=== PATIENT | male | born 1960 | race Caucasian/White ===

== ENCOUNTER 2016-10-14 08:06 | Emergency (ER) | payer OTHER ==
[~2016-10-14] VITALS: Ht 180.3 cm; Wt 97.9 kg
[~2016-10-14 08:06] MED LIST: AMOXICILLIN500 MG PO; ASPIRIN325 MG PO; CATAPRES0.1 MG PO; CLONIDINE HCL0.1 MG PO; CRESTOR40 MG PO; HYDROCHLOROTH12.5 M3 PO; HYDROCHLOROTHIA25 MG PO; ISOSORBIDE MONO30 MG PO; LIPITOR80 MG PO; LISINOPRIL10 MG PO; TARKA 4/2401 TABLET PO; TARKA PO; VERAPAMIL HCL240 MG PO
[2016-10-14 09:16] LABS: INFLUENZA A VIRAL ANTIGEN NEGATIVE; INFLUENZA B VIRAL ANTIGEN NEGATIVE
[2016-10-14 09:47] LABS: EOSINOPHIL (%) 0.3 % (0-5); HEMATOCRIT 40.4 % (38.0-50.0); IMMATURE GRANULOCYTE (%) 0.1 % (0.0-0.7); INSTRUMENT ABS NEUTROPHIL CT 6.6 K/uL; LYMPHOCYTE COUNT 0.6 K/uL (1.0-2.8); MCH 30.4 PG (29.0-34.0); MCHC 34.2 G/DL (30.0-36.0); MEAN PLAT.VOLUME 8.7 uM^3 (9.0-12.4); MONOCYTE (%) 6.7 % (3-12); MONOCYTE COUNT 0.5 K/uL (0-0.8); NEUTROPHIL (%) 85.2 % (45-76); NEUTROPHIL COUNT 6.6 K/uL (1.8-6.4); PLATELET COUNT 179 K/uL (156-360); RBC DIS.WIDTH-CV 12.5 % (11.8-14.6); RBC DIS.WIDTH-SD 40.8 % (39-53); RED BLOOD COUNT 4.54 M/uL (4.00-5.50); WHITE BLOOD COUNT 7.7 K/uL (4.1-10.2)
[2016-10-14 09:48] LABS: ADD MIUA? YES; BILIRUBIN SMALL; BLOOD NEGATIVE; COLOR AMBER ((YELLOW)); GLUCOSE (STRIP) NEGATIVE; KETONES 5; LEUKOCYTES NEGATIVE; NITRITE NEGATIVE; PROTEIN (STRIP) 100; SPECIFIC GRAVITY 1.038 (1.000-1.030)
[2016-10-14 09:59] LABS: CHLORIDE 104 mEq/L (99-109); POTASSIUM 3.8 mEq/L (3.7-5.4); SODIUM 141 mEq/L (136-147)
[2016-10-14 10:02] LABS: GLUCOSE 109 mg/dL (70-99)
[2016-10-14 10:03] LABS: ANION GAP 8 MEQ/L (2-14)
[2016-10-14 10:04] LABS: TOTAL BILIRUBIN 1.1 mg/dL (0.0-1.0)
[2016-10-14 10:05] LABS: ALKALINE PHOSPHATASE 76 IU/L (3-129); GFR ESTIMATE (CALCULATED) > 59 mL/min/
[2016-10-14 10:06] LABS: UREA NITROGEN (BUN) 13 mg/dL (9-23)
[2016-10-14 10:09] LABS: CASTS PRESENT /LPF; EPITHELIAL CELLS 1+ /HPF; MUCUS 2+ /LPF
[2016-10-14 10:11] LABS: BACTERIA NONE SEEN /HPF; RED BLOOD CELLS 0-5 /HPF (0-5); UCUL ADDED? NO
[2016-10-14 10:12] LABS: AMORPHOUS URATES CRYSTALS 1+; CRYSTALS PRESENT; HYALINE CASTS 15-20 /LPF
[2016-10-14] MEDS ORDERED: NAPROXEN500 MG PO (10:34)
[2016-10-14 10:45] VITALS: BP 113/70
== END 2016-10-14 10:47 | disposition home or self-care (01) ==
LOC: EME 08:06
PROVIDERS: Physician Assistant
DX: B34.9 Viral infection, unspecified (principal); E86.0 Dehydration; I10 Essential (primary) hypertension; E78.5 Hyperlipidemia, unspecified; F17.200 Nicotine dependence, unspecified, uncomplicated
CPT/HCPCS: 71020; 80053; 81003; 83605; 85025; 87040; 87502; 99281; 99285; J1885; J7120

== ENCOUNTER 2016-11-07 15:15 | Observation (INO) | payer OTHER ==
[~2016-11-07] VITALS: Ht 180.3 cm; Wt 93.1 kg
[~2016-11-07 15:15] MED LIST changes: +NAPROXEN500 MG PO
[2016-11-07 16:10] LABS: CHLORIDE 104 mEq/L (99-109); POTASSIUM 3.9 mEq/L (3.7-5.4); SODIUM 141 mEq/L (136-147)
[2016-11-07 16:12] LABS: GLUCOSE 85 mg/dL (70-99); HEMATOCRIT 46.2 % (38.0-50.0); MCH 30.5 PG (29.0-34.0); MCHC 34.4 G/DL (30.0-36.0); MCV 88.7 FL (86-99); MEAN PLAT.VOLUME 8.5 uM^3 (9.0-12.4); PLATELET COUNT 268 K/uL (156-360); RBC DIS.WIDTH-CV 12.9 % (11.8-14.6); RBC DIS.WIDTH-SD 42.3 % (39-53); RED BLOOD COUNT 5.21 M/uL (4.00-5.50); WHITE BLOOD COUNT 4.8 K/uL (4.1-10.2)
[2016-11-07 16:13] LABS: ANION GAP 9 MEQ/L (2-14)
[2016-11-07 16:16] LABS: GFR ESTIMATE (CALCULATED) > 59 mL/min/
[2016-11-07 16:17] LABS: UREA NITROGEN (BUN) 12 mg/dL (9-23)
[2016-11-07 16:23] LABS: TROP-I INTERPRETATION NEGATIVE; TROPONIN-I < 0.01 ng/mL (0.0-0.30)
[2016-11-07] MEDS ORDERED: IMDUR30 MG PO (18:49)
[2016-11-07 23:19] LABS: D-DIMER ELISA 0.32 mg/L FEU (< 0.57)
[2016-11-07 23:21] LABS: TOTAL BILIRUBIN 1.2 mg/dL (0.0-1.0)
[2016-11-07 23:22] LABS: ALKALINE PHOSPHATASE 90 IU/L (3-129)
[2016-11-07 23:24] LABS: DIRECT BILIRUBIN 0.5 mg/dL (0.0-0.3)
[2016-11-07 23:25] LABS: LIPASE 26 U/L (1.0-51.0)
[2016-11-07 23:26] LABS: TROP-I INTERPRETATION NEGATIVE; TROPONIN-I < 0.01 ng/mL (0.0-0.30)
[2016-11-08 00:32] VITALS: BP 156/88
[2016-11-08 03:55] VITALS: BP 114/63
[2016-11-08 05:45] LABS: TROP-I INTERPRETATION NEGATIVE; TROPONIN-I < 0.01 ng/mL (0.0-0.30)
[2016-11-08 06:17] LABS: HEMATOCRIT 39.1 % (38.0-50.0); MCH 30.6 PG (29.0-34.0); MCHC 34.3 G/DL (30.0-36.0); MCV 89.3 FL (86-99); PLATELET COUNT 209 K/uL (156-360); RBC DIS.WIDTH-CV 13.1 % (11.8-14.6); RBC DIS.WIDTH-SD 42.9 % (39-53); RED BLOOD COUNT 4.38 M/uL (4.00-5.50); WHITE BLOOD COUNT 4.3 K/uL (4.1-10.2)
[2016-11-08 06:18] LABS: ANION GAP 7 MEQ/L (2-14); CHLORIDE 104 MEQ/L (99-109); GFR ESTIMATE (CALCULATED) > 59 mL/min/; GLUCOSE 104 mg/dL (70-99); POTASSIUM 3.4 MEQ/L (3.7-5.4); SAMPLE HEMOLYSIS CHECK 0; SAMPLE ICTERIC CHECK 0; SAMPLE LIPEMIA CHECK 0; SODIUM 141 MEQ/L (136-147); UREA NITROGEN (BUN) 14 mg/dL (9-23)
[2016-11-08 09:06] VITALS: BP 131/81
[2016-11-08] MEDS ORDERED: IMDUR30 MG PO (11:36)
== END 2016-11-08 12:03 | disposition home or self-care (01) ==
LOC: EME 15:15 → EDOF 22:38 → 5WEST 22:38
PROVIDERS: Hospitalist
DX: R07.2 Precordial pain (principal); I10 Essential (primary) hypertension; E78.5 Hyperlipidemia, unspecified; I25.10 Atherosclerotic heart disease of native coronary artery without angina pectoris; F17.200 Nicotine dependence, unspecified, uncomplicated
CPT/HCPCS: 71020; 80048; 80076; 83690; 84484; 85027; 85379; 93005; 99281; 99284; G0378